=== PATIENT | female | born 1980 | race Asian ===

== ENCOUNTER → 2020-08-13 | Outpatient (CLI) | payer BC ==
--- NOTE | 2020-08-13 12:49 | REP ---
INDICATION: SOB COMPARISON: None. TECHNIQUE: PA and lateral. FINDINGS: The mediastinum and cardiac silhouette are normal. The lung carson are clear and without acute consolidation, effusion, or pneumothorax. The skeletal structures are intact and normal. IMPRESSION: No acute cardiopulmonary process. <Electronically signed by Dain Palmer > 08/13/20 [id number]
== END ==
LOC: M WUC 12:33
PROVIDERS: ATTEND Internal Medicine Cardiovascular Disease
DX: R06.02 Shortness of breath (principal); I34.0 Nonrheumatic mitral (valve) insufficiency; I10 Essential (primary) hypertension

== ENCOUNTER → 2020-09-10 | Outpatient (CLI) | payer BC ==
[2020-09-10 18:09] LABS: ALBUMIN 4.2 GM/DL (3.2-5.2); BLOOD UREA NITROGEN 14 MG/DL (7-18); CALCIUM LEVEL 9.2 MG/DL (8.5-10.1); CARBON DIOXIDE LEVEL 28 MEQ/L (21-32); CHLORIDE LEVEL 104 MEQ/L (98-107); CREATININE FOR GFR 0.85 MG/DL (0.55-1.30); GLOMERULAR FILTRATION RATE > 60.0 (>58); GLUCOSE, FASTING 141 MG/DL (70-100); MAGNESIUM LEVEL 2.1 MG/DL (1.8-2.4); PHOSPHORUS LEVEL 3.2 MG/DL (2.5-4.9); POTASSIUM SERUM 3.8 MEQ/L (3.5-5.1); SODIUM LEVEL 140 MEQ/L (136-145)
== END ==
LOC: M WUC 13:04
PROVIDERS: ATTEND Internal Medicine Cardiovascular Disease
DX: I10 Essential (primary) hypertension (principal)

== ENCOUNTER → 2020-09-24 | Outpatient (CLI) | payer BC ==
[~2020-09-24] MED LIST: CHLO125TA PO; LISI-538 PO; METF-839 PO; SPIR-10 PO; VITA50005 PO
== END ==
LOC: M LABSMTC 09:59
PROVIDERS: ATTEND Anesthesiology
DX: Z01.812 Encounter for preprocedural laboratory examination (principal); Z20.828 Contact with and (suspected) exposure to other viral communicable diseases

== ENCOUNTER 2020-09-28 12:32 | Day surgery (SDC) | payer BC ==
[~2020-09-28] VITALS: Ht 154.9 cm; Wt 68.5 kg
[~2020-09-28 12:32] MED LIST changes: +LR 1,000 ML IV ONE
[2020-09-28] MEDS ORDERED: LIDOCAINE VISCOUS 2% SOLN 15ML UDC As Ordered ONE (14:02)
[2020-09-28] MEDS ORDERED: CETACAINE SPRAY 5GM As Ordered ONE (14:02)
[2020-09-28] MEDS ORDERED: propofoL 200 MG/20 ML VIAL As Ordered ONE ×2 (14:36→15:08)
--- NOTE | 2020-09-28 15:26 | T-ECHO ---
TRANSESOPHAGEAL ECHO DATE: 09/28/2020 INDICATIONS: Mitral valve prolapse with mitral regurgitation. PREPROCEDURE DIAGNOSIS: Mitral valve prolapse with mitral regurgitation. POSTPROCEDURE DIAGNOSIS: Mitral valve prolapse with mitral regurgitation. PRINCIPAL FINDINGS: Mitral valve prolapse with a small flail segment of the posterior mitral leaflet. Associated severe mitral regurgitation. PROCEDURE PERFORMED: Transesophageal echocardiogram. PROCEDURE PERFORMED BY: Sohail Jerez M.D. ECHO TECHNOLOGIST: None. INTRAVENOUS (IV) SEDATION: Propofol IV per EQUIPMENT MAINTENANCE SUPERINTENDENT. COMPLICATIONS: None. DESCRIPTION OF PROCEDURE: Patient received topical Cetacaine to the back of the pharynx. She received IV sedation with propofol administered by the EQUIPMENT MAINTENANCE SUPERINTENDENT. After receiving adequate sedation, a Little three-dimensional transesophageal echocardiogram ANDERSON probe was placed into the esophagus by Dr. Jerez without difficulty. Rhythm was sinus. The mitral leaflets were mildly myxomatous. There was prolapse of the posterior mitral leaflet and the mid segment of the posterior mitral leaflet (P2), showed a small flail segment with associated loose or broken chordae. There was overall severe mitral regurgitation with two jets. The main jet was directed anteriorly. The other jet was directed somewhat posterior. Systolic flow reversal was not observed in the left upper pulmonary vein by pulse wave Doppler. The left atrium appeared to be at least mildly enlarged with at least mild enlargement of the left atrial appendage. The atrial septum was intact anatomically and by color flow Doppler. Right atrium appeared normal in size. Tricuspid leaflets were mildly myxomatous with slight prolapse. Mild tricuspid regurgitation was present. Aortic valve was 3-cuspid aortic valve and structurally and functionally normal. The pulmonic valve appeared structurally and functionally normal without pulmonic regurgitation detected. No pericardial effusion. The left and right ventricles were normal in size and systolic function. Left ventricle ejection fraction was 65% by visual estimate. The distal aortic arch and descending thoracic aorta showed mild atherosclerotic plaque. CONCLUSIONS: 1. 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 Severe mitral regurgitation. At least mild left atrial dilatation and mild dilatation of the left atrial appendage. 2. 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 Mild tricuspid regurgitation. 3. Normal left ventricle size and systolic function. LVEF 65% by visual estimate. 4. Mild atherosclerotic plaque in the distal aortic arch and descending thoracic aorta.
[2020-09-28 16:05] VITALS: BP 157/92
== END 2020-09-28 16:05 | disposition home or self-care (01) ==
LOC: M SDC 12:32
PROVIDERS: ATTEND Internal Medicine Cardiovascular Disease
DX: I34.0 Nonrheumatic mitral (valve) insufficiency (principal); I34.1 Nonrheumatic mitral (valve) prolapse; I10 Essential (primary) hypertension; Z79.899 Other long term (current) drug therapy

== ENCOUNTER → 2024-10-01 | Outpatient (CLI) | payer BC, SELFPAY ==
[~2024-10-01] MED LIST changes: +ERGO500029 PO; -LISI-538 PO; +LISI20TA33 PO; -LR 1,000 ML IV ONE; -VITA50005 PO
== END ==
LOC: M CARPUL 14:15
PROVIDERS: ATTEND Registered Nurse
DX: I25.10 Atherosclerotic heart disease of native coronary artery without angina pectoris (principal)

== ENCOUNTER → 2024-12-18 | Outpatient (CLI) | payer MEDICAID, OTHER | LOC: M CARPUL 16:24 | PROVIDERS: ATTEND Registered Nurse | DX: I08.9 Rheumatic multiple valve disease, unspecified (principal) ==